=== PATIENT | male | born 1970 | race Caucasian/White ===

== ENCOUNTER 2020-09-09 12:22 | Emergency (ER) | payer BC, SELFPAY ==
[2020-09-09] VITALS (10 sets, daily range): BP systolic 97–159; BP diastolic 55–87; PULSE 133–199; RESP 12–28; TEMP 36.3–36.7; O2SAT 87–100; BMI 18.8; BMI 19.0
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
--- NOTE | 2020-09-09 12:46 | PC.NURSE ---
pt began breathing on his own and having seizure like activity, MD notified, verbal order for 2mg of ativan.
--- NOTE | 2020-09-09 12:58 | PC.NURSE ---
16F OG inserted @ 65 400ml of blood noted to suction container
--- NOTE | 2020-09-09 12:59 | PC.NURSE ---
Dr Dillon talking to trauma team at this time
[2020-09-09 13:02] LABS: ABG Base Excess -17.5 mmol/L (-2.4-2.3); ABG HCO3 9.9 mmhg (22.0-26.0); ABG Oxygen Saturation 99 % (90-100); ABG PCO2 23.5 mmhg (35.0-45.0); ABG PH 7.24 mmol/L (7.35-7.45); ABG PO2 323.7 mmhg (80-100); ABG TCO2 10.6 mmhg (23-27)
[2020-09-09 13:03] LABS: Oxygen 100% AMBU %
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
[2020-09-09 13:16] LABS: Basophils # 0.1 K/mm3 (0-0.2); Basophils % 0.3 % (0.1-2.0); Eosinophils % 0.2 % (0.1-12.0); Hemoglobin 8.5 g/dL (14.1-18.0); Lymphocytes # 2.2 K/mm3 (0.7-4.5); Lymphocytes % 10.8 % (10-50); Mean Corpuscular Hemoglobin 30.5 pg (27.0-31.2); Mean Corpuscular Volume 95.4 fl (80-94); Mean Platelet Volume 8.7 fl (7.4-10.4); Monocytes # 0.9 K/mm3 (0.1-1.0); Monocytes % 4.4 % (1.7-9.3); Neutrophils # 17.3 K/mm3 (1.8-7.8); Neutrophils % 84.4 % (37.0-80.0); Platelet Count 170 K/mm3 (142-424)
--- NOTE | 2020-09-09 13:20 | PC.NURSE ---
Report given to theresa lowry at ED
[2020-09-09 13:21] LABS: Chloride 104 mmol/L (98-107); Sodium 141 mmol/L (136-145)
[2020-09-09 13:23] LABS: Potassium 2.7 mmoL/L (3.5-5.1)
[2020-09-09 13:24] LABS: Blood Urea Nitrogen 18 mg/dl (9-20); Creatinine Clearance Estimated 41 mL/min (50-200); Estimated Glomerular Filt Rate 37 ml/min (>60); GFR (African American) 45 ML/MIN (>60)
[2020-09-09 13:25] LABS: Anion Gap 26.7 mEq/L (5-15); Calcium 8.2 mg/dl (8.4-10.2); Carbon Dioxide 13 mmol/L (22.0-30.0); Glucose 137 mg/dl (74-100)
--- NOTE | 2020-09-09 13:30 | PC.NURSE ---
Pt transfered per [facility], report given to fernando
[2020-09-09 13:33] LABS: Hematocrit 27.1 % (42.0-52.0); White Blood Count 20.5 K/mm3 (4.8-10.8)
[2020-09-09 13:35] LABS: MANUAL DIFFERENTIAL MANUAL DIFFERENTIAL (MANUAL DIFF)
--- NOTE | 2020-09-09 13:43 | PC.NURSE ---
Respiratory Care note Pt bag/ET Tube per Stehpani Vo CRT. Size 7.5 ET Tube at 22 cm at the lip. Copious amounts of blood suctioned from Nasal and oral airways. Care transferred to helicopter crew for vasyl.
--- NOTE | 2020-09-09 13:52 | PC.NURSE ---
1210: pt arrived per ems, pulseless and intubated cpr in progress, [address] [facility]IA[address] by ems 1210: 1mg given and 1L of NS infusing 1213: pulse check, astoyle, cpr continued 1mg epi given 1216: pulse back, pt continued to be bagged via ETT o2 sat 92 1223: negative fast exam per MD 1234: family at bedside
[2020-09-09 14:12] LABS: Lymphocytes % 15 % (10-50); Monocytes % 4 % (2-9); Neutrophils % 78 % (42-76); Total Cells Counted 100
[2020-09-09 14:13] LABS: Platelet Estimate Normal; RBC Morphology Normal
[2020-09-12 08:53] LABS: POC Glucose,Bedside 163 (70-110)
== END 2020-09-09 13:30 | disposition critical access hospital (66) ==
PROVIDERS: Emergency Provider Emergency Medicine
DX: S01.83XA Puncture wound without foreign body of other part of head, initial encounter (principal); Y92.019 Unspecified place in single-family (private) house as the place of occurrence of the external cause
CPT/HCPCS: 31500; 71045; 80048; 82803; 82962; 85007; 85025; 96365; 96366; 96375; 99291